=== PATIENT | male | born 1995 ===

== ENCOUNTER → 2017-06-02 | Outpatient (CLI) | payer SELFPAY ==
[2017-06-02 14:17] LABS: CHLAM PCR NOT DETECTED (NOT DETECT)
== END ==
LOC: LAB 12:34
PROVIDERS: ATTEND Emergency Medicine
DX: Z20.2 Contact with and (suspected) exposure to infections with a predominantly sexual mode of transmission (principal)
CPT/HCPCS: 87491; 87591